=== PATIENT | female | born 1965 | race Caucasian/White ===

== ENCOUNTER 2017-07-20 07:37 | Day surgery (SDC) | payer OTHER ==
[2017-07-20] MEDS: CIPROFLOXACIN 400MG/D5W 200 ML IVPB (07:00)
[2017-07-20] MEDS ORDERED: MIDAZOLAM 1 MG/ML 2 ML INJ (09:26)
[2017-07-20] MEDS ORDERED: FENTAnyl 50 MCG/ML VIAL (09:29)
[2017-07-20] MEDS ORDERED: ONDANSETRON 4 MG INJ (09:29)
[2017-07-20] MEDS ORDERED: PROPOFOL 20 ML (09:29)
[2017-07-20] MEDS ORDERED: CIPROFLOXACIN 400MG/D5W 200 ML (09:30)
[2017-07-20] MEDS ORDERED: METOCLOPRAMIDE 10 MG INJ (09:30)
[2017-07-20] MEDS ORDERED: ACETAMINOPHEN 1000MG/100ML IV 100 ML (09:30)
[2017-07-20] MEDS: IOHEXOL 300MG/ML 30 ML BTL (09:51)
[2017-07-20] MEDS ORDERED: METHYLENE BLUE 1% 10 ML INJ (09:56)
[2017-07-20] MEDS ORDERED: hydrALAzine 20 MG INJ IV (10:00)
[2017-07-20] MEDS ORDERED: DIPHENHYDRAMINE 50 MG INJ IV (10:00)
[2017-07-20] MEDS ORDERED: OXYCODONE/ACETAMINOPHEN (5/325) TAB PO (10:00)
[2017-07-20] MEDS ORDERED: HYDROmorphONE 1 MG/5 ML IV SYRINGE IV (10:00)
[2017-07-20] MEDS: HYDROmorphONE 1 MG/5 ML IV SYRINGE IV ×3 (11:23→12:07)
[2017-07-20] MEDS: ONDANSETRON 4 MG INJ IV (11:24)
[2017-07-20] MEDS: LABETALOL HCL 20MG INJ IV (11:39)
[2017-07-20] MEDS: MEPERIDINE 25 MG INJ IV (11:39)
[2017-07-20] MEDS: OXYCODONE/ACETAMINOPHEN (5/325) TAB PO ×2 (12:45→14:01)
== END 2017-07-20 14:59 | disposition home or self-care (01) ==
LOC: SDS 07:37
DX: N20.1 Calculus of ureter (principal); I10 Essential (primary) hypertension; E66.01 Morbid (severe) obesity due to excess calories; Z68.36 Body mass index [BMI] 36.0-36.9, adult
CPT/HCPCS: 52356; 84703

== ENCOUNTER → 2018-04-25 | Outpatient (CLI) | payer OTHER ==
[~2018-04-25] MED LIST: GENTAMICIN 80 MG INJ
== END | disposition home or self-care (01) ==
LOC: HKI 14:40
DX: M17.12 Unilateral primary osteoarthritis, left knee (principal)
CPT/HCPCS: 73564; 73564-LT

== ENCOUNTER 2018-04-26 07:43 | Day surgery (SDC) | payer OTHER ==
[~2018-04-26 07:43] MED LIST changes: -GENTAMICIN 80 MG INJ; +ROCURONIUM 50 MG INJ; +SEVOFLURANE 15 MIN; +SUCCINYLCHOLINE CHLORIDE 100 MG/5 ML SYG IV
[2018-04-26] MEDS ORDERED: ONDANSETRON 4 MG INJ IV (10:00)
[2018-04-26] MEDS ORDERED: FENTAnyl 50 MCG/ML VIAL IV ×2 (10:00)
[2018-04-26] MEDS ORDERED: DIPHENHYDRAMINE 50 MG INJ IV (10:00)
[2018-04-26] MEDS ORDERED: HYDROmorphONE 1 MG/5 ML IV SYRINGE IV ×2 (10:00)
[2018-04-26] MEDS ORDERED: PROCHLORPERAZINE 10 MG INJ IV (10:00)
[2018-04-26] MEDS ORDERED: PROPOFOL 20 ML (10:05)
[2018-04-26] MEDS ORDERED: FENTAnyl 50 MCG/ML VIAL (10:05)
[2018-04-26] MEDS ORDERED: MIDAZOLAM 1 MG/ML 2 ML INJ (10:05)
[2018-04-26] MEDS ORDERED: LIDOCAINE 2% (SDV) 5 ML INJ (10:05)
[2018-04-26] MEDS ORDERED: ONDANSETRON 4 MG INJ (10:24)
[2018-04-26] MEDS ORDERED: DEXAMETHASONE 4 MG/ML 5 ML INJ (10:24)
[2018-04-26] MEDS ORDERED: FAMOTIDINE 20 MG INJ (10:24)
[2018-04-26] MEDS ORDERED: CIPROFLOXACIN 400MG/D5W 200 ML (10:31)
[2018-04-26] MEDS ORDERED: ROCURONIUM 50 MG INJ (10:33)
[2018-04-26] MEDS: IOHEXOL 300MG/ML 30 ML BTL (10:48)
[2018-04-26] MEDS ORDERED: HYDROmorphONE 2 MG/ML SYG (11:11)
[2018-04-26] MEDS ORDERED: SUGAMMADEX SODIUM 200 MG/2 ML VIAL IV ×3 (11:28→11:37)
[2018-04-26] MEDS: HYDROmorphONE 1 MG/5 ML IV SYRINGE IV ×2 (12:59→13:30)
[2018-04-26] MEDS: FENTAnyl 50 MCG/ML VIAL IV ×2 (13:00→13:30)
[2018-04-26] MEDS: OXYCODONE/ACETAMINOPHEN (5/325) TAB PO (13:04)
[2018-04-26] MEDS: MEPERIDINE 25 MG INJ IV (13:34)
[2018-04-26] MEDS: KETOROLAC 30 MG INJ IV (16:24)
[2018-04-26] MEDS ORDERED: TAMSULOSIN (SR) 0.4 MG CAP PO (21:00)
[2018-04-26] MEDS ORDERED: FLUTICASONE 0.05% 16 GM NAS SPRAY NASAL (21:00)
[2018-04-26] MEDS ORDERED: MONTELUKAST 10 MG TAB PO (21:00)
[2018-04-27] MEDS ORDERED: AMLODIPINE 5 MG TAB PO (09:00)
[2018-04-27] MEDS ORDERED: LOSARTAN 50 MG TAB PO (09:00)
== END 2018-04-26 16:34 | disposition home or self-care (01) ==
LOC: SDS 07:43
DX: N13.2 Hydronephrosis with renal and ureteral calculous obstruction (principal); I10 Essential (primary) hypertension; E78.5 Hyperlipidemia, unspecified
CPT/HCPCS: 52356; 74430; 88300

== ENCOUNTER → 2018-05-23 | Outpatient (CLI) | payer OTHER | END | disposition home or self-care (01) | LOC: HKI 13:21 | DX: M17.12 Unilateral primary osteoarthritis, left knee (principal) | CPT/HCPCS: 20610 ==